=== PATIENT | male | born 2000 | race Caucasian/White ===

== ENCOUNTER → 2018-05-18 16:54 | Outpatient (CLI) | payer BC | END | disposition home or self-care (01) | LOC: D.MRI 16:54 | DX: M25.561 Pain in right knee (principal) ==

== ENCOUNTER → 2018-06-05 05:06 | Day surgery (SDC) | payer BC ==
[~2018-06-05] VITALS: Ht 170.2 cm; Wt 59.0 kg
--- NOTE | ~2018-06-05 | OP ---
PATIENT NAME: KELVIN DAVE MEDICAL RECORD: [id number] :98 LOCATION:[facility] ADMISSION DATE: SURGEON: LEX GERARDO DO DATE OF OPERATION: 06/05/2018 PROCEDURE PERFORMED: Right ACL reconstruction with a knee arthroscopy and hamstrings autograft. PREOPERATIVE DIAGNOSIS: Right anterior cruciate ligament tear. POSTOPERATIVE DIAGNOSIS: Right anterior cruciate ligament tear. INDICATIONS: Mr. Dave is a 18-year-old male that injured his knee approximately 5 years ago when he was 13. He went to therapy, never had an MRI. He was having knee instability ever since. He said anytime he twists, it gives out on him and he has had pain with it. An MRI was done, it appeared that the few fibers of the ACL were still attached to the lateral femoral condyle, but based on exam, he had a positive anterior drawer and a 3+ Jose's and in the OR, positive pivot shift. It was essentially nonfunctioning ACL. The patient was informed we would get in there and probe the ACL and if they were intact, then we would leave it and sent him to therapy, but due to his symptoms and then once we got in there, we saw that it was torn off, it just scarred down to the PCL. A decision was made to reconstruct his ACL. He was aware of the risks and benefits of the procedure including infection, bleeding, damage to nerve and vessels, need for further surgery, failure of the graft and fracture. The patient was okay with that and signed the consent. SURGEON: Lex Gerardo DO DESCRIPTION OF PROCEDURE: The patient was given a block in the preoperative area by anesthesia and taken to the operative suite, laid in supine position. The right lower extremity was prepped and draped in a sterile fashion. A timeout was performed and everyone was in agreement with the correct side, site, and patient. The patient received 2 g of Ancef preoperatively. Once the timeout was performed, the incision began through the lateral portal. The scope was then entered into the knee. Inspection of the knee began with the scope. The suprapatellar pouch did not show any loose bodies. The lateral gutter and medial gutter were clear too and the medial meniscus was then probed after the medial portal was established with an 18-gauge spinal needle and 11-blade scalpel. The medial meniscus was probed and no tears were seen in it. The ACL was then probed and seemed to be very loose and only had a few remaining fibers if any attached to the lateral femoral condyle. Due to this and as I previously discussed with the patient, we proceeded with the ACL reconstruction. The leg was [id number]'ed and the lateral meniscus was probed as well and no tears were seen in it. The scope was then taken out of the knee and the incision was made approximately 6 cm from the joint line during the graft of the gracilis and semitendinosus. This was obtained using tendon strippers and these were nice grafts. The gracilis pulled first and then the semitendinosus. They were prepared on the back table. They were whipstitched on each end and seemed to fit through a 9 mm tunnel. A 9.5 tunnel was then drilled on the femur after the ACL was removed and a nitinol wire was passed through that using a flip cutter, this was what the tunnel was created with. The tibia was then prepared and drilled first with a 6 mm drill and then a 9, a 5. The excess bone debris from the tunnels was removed with a shaver and then the graft that had been prepared was brought up. The nitinol wire was grabbed down through the tibia and the OPERATIVE REPORT [id number] KELVIN DAVE graft was pulled up through the tunnels. The button had flipped on the femur and traction was pulled on the distal part through the tibia and this was tightened up. This seemed to be in good position as we looked through the scope and then the graft was tensioned using the graft pull device and it was dilated to a 9 on the tibia side and then a 9 graft was put in. It seemed to be very well fixed. The drawer was negative as was the Jose's and pivot shift following this. Then, the graft was inspected, seemed to be very taut in the knee and did not impinge with extension. The femur side was then toggled one more time to tighten anything up and the excess sutures and graft were cut. The wound over the graft site was thoroughly irrigated on the medial tibia and closed with 2-0 Vicryl and then 4-0 Monocryl ran into the skin and each of the portal sites, medial and lateral and then the poke hole in the femur was closed with 4-0 Monocryl in inverted interrupted fashion. Steri-Strips, Adaptic, 4 x 4's, ABD, Webril, and Adam wrap were then placed on the knee. The patient was placed in knee immobilizer with a MICHAEL hose stocking up to the knee under that and awakened and taken to recovery in stable condition. A tourniquet was put up during the procedure, it was up for 16 minutes at 350 mmHg, it was let down at the end. Bleeding was approximately 50 mL. Complications none. TRANSINT:[id number] Voice Confirmation ID: [id number] DOCUMENT ID: [id number] LEX GERARDO DO at 0921 CC: [id number] DICTATION DATE: 06/05/18 1010 OBJECT ORIENTED DEVELOPER: 06/05/18 1329 [facility] [place] 06/05/18 [facility] [address] [place] [address]
[~2018-06-05 05:06] MED LIST: KEFLEX500 MG PO; PERCOCET 7.5/321 TAB PO; TORADOL10 MG PO; ZOFRAN ODT4 MG/UDTAB PO
[2018-06-05 06:28] VITALS: BP 130/64; Ht 170.2 cm; Wt 59.0 kg
== END | disposition home or self-care (01) ==
LOC: D.OPS 05:06 → D.PAN 07:30
DX: S83.511A Sprain of anterior cruciate ligament of right knee, initial encounter (principal); M67.51 Plica syndrome, right knee; Z01.812 Encounter for preprocedural laboratory examination

== ENCOUNTER 2019-03-10 10:14 | Emergency (ER) | payer BC ==
[~2019-03-10] VITALS: Ht 170.2 cm; Wt 59.1 kg
[2019-03-10 10:25] VITALS: Ht 170.2 cm; Wt 59.1 kg
[2019-03-10 12:03] LABS: BASOPHILS 0.5 % (0-2); EOSINOPHILS 4.4 % (0-7); HEMATOCRIT 47.2 % (42.0-54.0); HEMOGLOBIN 16.3 g/dL (13.5-17.5); IMMATURE GRANULOCYTES 0.2 % (0-5); LYMPHOCYTES 31.5 % (15-50); MCH 30.9 pg (26.0-34.0); MCHC 34.5 g/dL (31.0-37.0); MCV 89.6 fL (80.0-100.0); MEAN PLATELET VOLUME 11.5 fL (7.4-10.4); MONOCYTES 6.2 % (2-11); NEUTROPHILS 57.2 % (40-80); PLATELET COUNT 166 10x3/uL (130-400); RBC 5.27 10x6/uL (4.20-6.10); RDW 12.7 % (11.5-14.5); WBC 5.9 10x3/uL (4.8-10.8)
[2019-03-10 12:15] LABS: ALBUMIN 4.6 g/dL (3.4-5.0); ALKALINE PHOSPHATASE 99 U/L (46-116); ALT (SGPT) 23 U/L (10-68); BILIRUBIN - TOTAL 0.78 mg/dL (0.2-1.3); CALC OSMOLALITY 276 mosm/kg (275-300); CALCIUM 9.5 mg/dL (8.5-10.1); CARBON DIOXIDE 34.6 mmol/L (21.0-32.0); CHLORIDE - SERUM 101 mmol/L (98-107); CREATININE - SERUM 1.1 mg/dL (0.6-1.3); GLUCOSE 81 mg/dL (74-106); POTASSIUM - SERUM 4.7 mmol/L (3.5-5.1); PROTEIN - SERUM 8.2 g/dL (6.4-8.2); SODIUM 139 mmol/L (136-145); UREA NITROGEN 12 mg/dL (7-18); eGFR NON AFRICAN AMERICAN > 90 mL/min (90-120)
[2019-03-10 15:52] VITALS: BP 104/68
== END 2019-03-10 15:52 | disposition home or self-care (01) ==
LOC: D.ER 10:14
PROVIDERS: Emergency Medicine
DX: R00.2 Palpitations (principal); Q67.6 Pectus excavatum; R42 Dizziness and giddiness

== ENCOUNTER → 2020-10-06 08:02 | Outpatient (CLI) | payer BC ==
[2019-09-02 12:49] VITALS: BMI 20.8
== END | disposition home or self-care (01) ==
LOC: D.CT 10-03 08:30
PROVIDERS: ATTEND Family Medicine
DX: R59.0 Localized enlarged lymph nodes (principal); M54.2 Cervicalgia